=== PATIENT | male | born 1990 | race Caucasian/White ===

== ENCOUNTER 2018-05-07 05:32 | Inpatient (IN) | payer OTHER ==
[~2018-05-07] VITALS: Ht 172.7 cm; Wt 76.7 kg
--- NOTE | 2018-05-07 07:26 | NUR ---
MS RN NOTES PATIENT RECEIVED RESTING INSIDE ROOM. SLEEPING, EASILY AROUSABLE THROUGH VERBAL AND TACTILE STIMULI. BREATHING EVEN AND UNLABORED. DENIES ANY PAIN OR DISCOMFORT. PATIENT ADMITTED TO [facility] FLOOR. NABEEL HARDWICK NP MADE AWARE OF PATIENT ARRIVAL. AWAITING FOR DIET ORDERS. FAMILY AT BEDSIDE. PATIENT ORIENTED TO UNIT, STAFF, PLAN OF CARE AND VERBALIZED UNDERSTANDING. WILL CONTINUE TO MONITOR. BED LOCKED AND IN LOW POSITION. BILATERAL UPPER SIDE RAILS UP AND LOCKED. CALL LIGHT WITHIN EASY REACH
[2018-05-07 08:00] VITALS: BP 146/92
--- NOTE | 2018-05-07 08:00 | NUR ---
MS RN NOTES NINI CARRERA DNP MADE AWARE OF PATIENT ARRIVAL. MADE AWARE OF AWAITING ADMISSION ORDERS. WILL CONTINUE TO MONITOR
--- NOTE | 2018-05-07 08:30 | NUR ---
MS RN NOTES PATIENT'S MOTHER, SUMEET BYNUM, PRESENT AT UNIT AND LEFT CONTACT INFORMATION OF [phone]. REQUESTED IF SHE BE INFORMED OF ANY MEDICAL INFORMATION REGARDING THE PATIENT. EXPLAINED TO SUMEET BYNUM THAT PATIENT NEEDS TO BE INFORMED FIRST AND GIVE CONSENT PRIOR TO RELEASE OF MEDICAL INFORMATION PATIENT IS CAPABLE OF MAKING HIS OWN DECISIONS. SUMEET BYNUM VERBALIZED UNDERSTANDING AND SAID SHE WILL WAIT UNTIL PATIENT IS AWAKE PRIOR TO ASKING FOR CONSENT. WILL CONTINUE TO MONITOR
--- NOTE | 2018-05-07 10:21 | NUR ---
MS RN NOTES PATIENT AWAKE, ALERT AND ORIENTED X 4, VERBALLY RESPONSIVE AND RESPONDS TO VERBAL AND TACTILE STIMULI. BREATHING EVEN AND UNLABORED. DENIES ANY PAIN OR DISCOMFORT. PATIENT MADE AWARE OF MOTHER'S VISIT, SUMEET BYNUM. PATIENT VERBALIZED THAT ITS OK FOR STAFF TO GIVE MEDICAL INFORMATION TO MOTHER, SUMEET BYNUM. WILL CONTINUE TO MONITOPR
[2018-05-07] MEDS ORDERED: ACETAMINOPHEN 325 MG TABLET PO PRN (10:30)
[2018-05-07] MEDS ORDERED: HYDROCODONE/APAP 10/325MG 1 EA TABLET PO PRN (10:30)
[2018-05-07] MEDS ORDERED: ZOLPIDEM TARTRATE 5 MG TABLET PO PRN (10:30)
[2018-05-07] MEDS ORDERED: Z GUARD REMEDY 2 OZ OINT TP PRN (10:30)
[2018-05-07] MEDS ORDERED: ONDANSETRON HCL/PF 4 MG/2 ML VIAL IVP PRN (10:30)
[2018-05-07 11:19] LABS: CALCIUM, SERUM 8.2 mg/dL (8.5-10.1); CREATININE 0.9 mg/dL (0.6-1.3); POTASSIUM 4.1 mmol/L (3.5-5.1)
[2018-05-07] MEDS ORDERED: FEE PK DOSING 1 MIN EA MC ONE (11:47)
[2018-05-07] MEDS ORDERED: PIPERACILLIN /TAZOBACTAM 3.375 G in IV D5W 50 ML IV SCH (12:00)
[2018-05-07] MEDS: VANCOMYCIN 1 GM in IV D5W 250 ML IV SCH (13:05)
--- NOTE | 2018-05-07 13:36 | NUR ---
MS RN NOTES PATIENT SEEN AND EXAMINED BY NINI CARRERA DNP. EXAMINED PATIENT'S LEFT INDEX FINGER, WITH NEW ORDERS FOR WOUND CULTURE OF LEFT INDEX FINGER WOUND AND TO START BACTROBAN OINTMENT APPLICATION ON WOUND. ORDERS NOTED AND CARRIED OUT. SPECIMEN OBTAINED AND NOTIFIED LAB. PHARMACY MADE AWARE. AWAITING FOR BACTROBAN OINTMENT. WILL CONTINUE TO MONITOR
[2018-05-07 16:00] VITALS: BP 143/67
--- NOTE | 2018-05-07 18:46 | NUR ---
MS RN NOTES PATIENT RESTING INSIDE ROOM. AWAKE, ALERT AND ORIENTED X 4, VERBALLY RESPONSIVE AND RESPONDS TO VERBAL AND TACTILE STIMULI. BREATHING EVEN AND UNLABORED. NO ACUTE DISTRESS. DENIES ANY PAIN OR DISCOMFORT. CONTINUE TO NOTE WITH DRAINAGE ON LEFT INDEX FINGER, WOUND TX RENDERED AND PATIENT TOLERATED WOUND DRESSING CHANGE WELL. NO CHANGES IN LOC NOTED. IV INTACT AND PATENT. WILL ENDORSE TO INCOMING SHIFT FOR TED. BED LOCKED AND IN LOW POSITION. BILATERAL UPPER SIDE RAILS UP AND LOCKED. CALL LIGHT WITHIN EASY REACH
--- NOTE | 2018-05-07 19:37 | NUR ---
MS/RN OPENING NOTES RECEIVED PATIENT IN BED, RESTING COMFORTABLY IN BED, NO GRIMACE OR GUARDING OBSERVED, CAN OPEN EYES AND RESPOND. ON ROOM AIR, WITH LEFT HAND INDEX FINGER COVERED WITH DRESSING WITH CELLULITIS, REQUIRE ASSISTANCE, LEFT FORE ARM GAUGE 20 TO MONITOR, CALL LOGHTS WITHIN REACH, BED LOCKED WILL MONITOR.
[2018-05-07] MEDS: PIPERACILLIN /TAZOBACTAM 3.375 G in IV D5W 100 ML IV SCH (19:51)
[2018-05-07 19:58] VITALS: BP 135/69
[2018-05-07 20:00] VITALS: BP 135/69
[2018-05-07] MEDS: MUPIROCIN OINT 2% 22 GM TUBE TP SCH (20:31)
[2018-05-08] MEDS: VANCOMYCIN 1 GM in IV D5W 250 ML IV SCH ×2 (01:34→12:41)
[2018-05-08] MEDS: PIPERACILLIN /TAZOBACTAM 3.375 G in IV D5W 100 ML IV SCH ×3 (03:55→19:53)
[2018-05-08 03:59] VITALS: BP 135/69
--- NOTE | 2018-05-08 06:20 | NUR ---
312-2 MS/RN NOTED PATIENT IN BED, ABLE TO SLEEP DURING THE NIGHT, ON IV ANTIBIOTIC THERAPY, WILL CONTINUE TO MONITOR AND FOLLOW UP MD, CALL LIGHTS WITHIN REACH, BED LOCKED, WILL MONITOR.
--- NOTE | 2018-05-08 07:30 | NUR ---
MS RN OPENING NOTES PATIENT IN BED, A/O X3, ON IV ANTIBIOTIC THERAPY, IV SIDE INTACT AND PATENT. PT STATUS NPO AT THIS TIME. DENIES PAIN AT THIS TIME. CALL LIGHTS WITHIN REACH, BED LOCKED, WILL CONTINUE TO MONITOR
[2018-05-08 07:33] LABS: BASOPHILS % (AUTO) 0.3 % (0.0-2.0); EOSINOPHILS % (AUTO) 0.5 % (0.0-6.0); HEMATOCRIT 48 % (39-51); HEMOGLOBIN 15.9 g/dL (13.5-17.5); LYMPHOCYTES # (AUTO) 1.1 /CMM (0.8-4.8); LYMPHOCYTES % (AUTO) 10.8 % (20.0-44.0); MEAN CORPUSCULAR HGB CONC 33 g/dl (31.0-36.0); MEAN CORPUSCULAR VOLUME 81 fL (80-96); MONOCYTES # (AUTO) 0.6 /CMM (0.1-1.30); MONOCYTES % (AUTO) 5.8 % (2.0-12.0); NEUTROPHILS # (AUTO) 8.8 /CMM (1.8-8.9); NEUTROPHILS % (AUTO) 82.6 % (43.0-81.0); PLATELET COUNT (AUTO) 266 /CMM (150-450); RED BLOOD CELL COUNT(AUTO) 5.95 MIL/uL (4.5-6.0); WHITE BLOOD COUNT (AUTO) 10.6 K/uL (4.3-11.0)
[2018-05-08 08:00] VITALS: BP 105/68
[2018-05-08 08:03] VITALS: BP 105/68
[2018-05-08 08:10] LABS: CALCIUM, SERUM 8.7 mg/dL (8.5-10.1); MAGNESIUM 1.9 mg/dL (1.8-2.4); PHOSPHORUS 2.9 mg/dL (2.5-4.9); POTASSIUM 3.6 mmol/L (3.5-5.1)
[2018-05-08] MEDS: MUPIROCIN OINT 2% 22 GM TUBE TP SCH (08:19)
[2018-05-08] MEDS ORDERED: LIDOCAINE 1%-EPI 1:100,000 20 ML VIAL TP ONE (12:00)
--- NOTE | 2018-05-08 12:00 | NUR ---
BEDSIDE PROCEDURE (LEFT INDEX INCISION AND DRAINAGE) BY .
[2018-05-08 16:00] VITALS: BP 115/52
--- NOTE | 2018-05-08 19:20 | NUR ---
RN OPENING NOTES PT AWAKE, ALERT AND RESTING IN BED. NO COMPLAINTS OF PAIN, SOB OR DISTRESS AT THIS TIME. PT HAS A LEFT FOREARM #20 IV, INTACT AND PATENT. SAFETY PRECAUTIONS IN PLACE, BED IN LOWEST LOCKED POSITION, X2 SIDE RAILS UP AND CALL LIGHT WITHIN REACH. WILL CONTINUE TO MONITOR.
--- NOTE | 2018-05-08 19:31 | NUR ---
MS RN CLOSING NOTES PATIENT IN BED, A/O X3, ON IV ANTIBIOTIC THERAPY, IV SIDE INTACT AND PATENT. NO DISTRESS NOTED. PT TO D/C TOMORROW MORNING. CALL LIGHTS WITHIN REACH, SAFETY PRECAUTIONS IN PLACE.WILL ENCORES TO NEXT SHIFT
[2018-05-08 20:00] VITALS: BP 139/65
[2018-05-09] MEDS: VANCOMYCIN 1 GM in IV D5W 250 ML IV SCH ×3 (00:08→20:25)
[2018-05-09] MEDS: PIPERACILLIN /TAZOBACTAM 3.375 G in IV D5W 100 ML IV SCH ×3 (03:36→20:15)
[2018-05-09 06:35] LABS: CALCIUM, SERUM 8.9 mg/dL (8.5-10.1); CREATININE 1.1 mg/dL (0.6-1.3); POTASSIUM 3.9 mmol/L (3.5-5.1)
--- NOTE | 2018-05-09 06:57 | NUR ---
RN CLOSING NOTES PT ALERT AND RESTING IN BED. NO COMPLAINTS OF PAIN, SOB OR DISTRESS OVERNIGHT. PT HAS A LEFT FOREARM #20 IV, INTACT AND PATENT. SAFETY PRECAUTIONS IN PLACE, BED IN LOWEST LOCKED POSITION, X2 SIDE RAILS UP AND CALL LIGHT WITHIN REACH. WILL ENDORSE TO DAY SHIFT NURSE FOR CONTINUITY OF CARE.
--- NOTE | 2018-05-09 07:40 | NUR ---
MS RN RECEIVED ON BED, AWAKE,ALERT,ORIENTED X4,NOT IN ANY FORM OF DISTRESS NOTED, LEFT HAND W/ DRESSING DRY AND INTACT, DENIES PAIN AT THIS TIME,ALL NEEDS ATTENDED.
[2018-05-09 08:00] VITALS: BP 136/80
--- NOTE | 2018-05-09 08:50 | NUR ---
MS PERSAUD BREAKFAST SERVED,NO DUE MEDS AT THIS TIME.
--- NOTE | 2018-05-09 10:00 | NUR ---
MS HUN[employer]TE DELIVERY CLERK CAME TO SEE PT ,CHANGED DRESSING,DENIES PAIN AT THIS TIME.
[2018-05-09] MEDS ORDERED: DALB500V IV (11:39)
--- NOTE | 2018-05-09 12:00 | NUR ---
MS RN SEEN BY W/ ORDER TO GO HOME W/ HOME HEALTH IV ATB.
[2018-05-09] MEDS ORDERED: VANCOMYCIN 1 GM in IV D5W 250 ML IV SCH (13:30)
[2018-05-09 16:00] VITALS: BP 116/53
--- NOTE | 2018-05-09 17:00 | NUR ---
MS RN PATIENT READY TO BE DISCHARGE BUT NOW CRYING BECAUSE NO WHERE TO GO,HIS EMPLOYER JUST FIRED HIM AND NO PLACE TO GO, CALLED SUPERVISOR MACHINE SETTER TO ARRANGE DISCHARGE.
--- NOTE | 2018-05-09 18:58 | NUR ---
MS RN MOM AT BEDSIDE, CALLED [employer]ON INDOOR LANDSCAPER/GARDENER.
--- NOTE | 2018-05-09 19:30 | NUR ---
RECEIVED PATIENT IN BED WITH EYES CLOSED; EASILY AROUSABLE. AO X 3, NO ACUTE DISTRESS NOTED. NO SIGNS OF PAIN NOTED. IV PATENT, INTACT; FLUSHED. SAFETY REMINDERS GIVEN. ON LOW BED WITH BILATERAL UPPER SIDE RAILS UP. CALL RAJPUT WITHIN EASY REACH. WILL CONTINUE TO MONITOR.
[2018-05-09 20:00] VITALS: BP 135/81
[2018-05-10] MEDS: PIPERACILLIN /TAZOBACTAM 3.375 G in IV D5W 100 ML IV SCH (04:36)
[2018-05-10] MEDS: VANCOMYCIN 1 GM in IV D5W 250 ML IV SCH (04:37)
--- NOTE | 2018-05-10 06:00 | NUR ---
PATIENT ASLEEP, EASILY AROUSABLE. RESPIRATIONS EVEN. NO SIGNS OF PAIN NOTED. DUE MEDS GIVEN WITH NO ASE NOTED. NEEDS ATTENDED. KEPT CLEAN, DRY, AND COMFORTABLE. SAFETY PRECAUTIONS AND COMFORT MEASURES IN PLACE. WILL GIVE REPORT TO DAY SHIFT FOR CONTINUITY OF CARE.
[2018-05-10 07:06] LABS: CALCIUM, SERUM 9.2 mg/dL (8.5-10.1); CREATININE 1.1 mg/dL (0.6-1.3); POTASSIUM 3.8 mmol/L (3.5-5.1)
--- NOTE | 2018-05-10 07:40 | NUR ---
MS RN RECEIVED ON BED, AWAKE,ALERT,ORIENTED X4,NOT IN ANY FORM OF DISTRESS,RESPIRATIONS EVEN AND UNLABORED,NO SOB NOTED, LUNGS ARE CLEAR,ABDOMEN SOFT, POSITIVE BOWEL SOUNDS,DENIES PAIN AT THIS TIME,WILL MONITOR PATIENT'S CONDITION.
--- NOTE | 2018-05-10 08:30 | NUR ---
MS RN BREAKFAST SERVED,TOLERATED WELL.DENIES PAIN AT THIS TIME,PATIENT WANTS TO LEAVE BECAUSE HE WANTS TO GET HIS BELONGINGS IN HIS JOB RIGHT NOW, OTHERWISE,THE Y WILL THROWAWAY HIS BELONGINGS THERE,EXPLAINED THAT HE NEEDS TO STAY, MOM WILL PICK HIM UP,BUT STILL IN A HURRY TO GO HOME, EDUCATED REGARDING WOUND CARE,AND THE IMPORTANCE OF ATB IV THAT HOME HEALTH WILL GIVE, HE TOLD ME THAT THEY WILL COME TO HIS MOM'S HOUSE AND DO IT THERE.
--- NOTE | 2018-05-10 09:10 | NUR ---
MS RN DRESSING TO LEFT HAND DONE ,THEN PATIENT WENT HOME,CHARGE NURSE AWARE,CALLED AND NOTIFIED DIGITAL ADVISOR. PICTURE JUST TAKEN YESTERDAY MORNING WHEN DRESSING CHANGE W/ DATABASE ARCHITECT.
== END 2018-05-10 09:00 | disposition home health service (06) | DRG 364 ==
LOC: MED 06:35
PROVIDERS: ADMIT Nurse Practitioner Acute Care; ATTEND Nurse Practitioner Acute Care
PROC: 0J8K0ZZ Division of Left Hand Subcutaneous Tissue and Fascia, Open Approach (ICD-10-PCS; principal; 2018-05-08)
PROC: 0KBD0ZZ Excision of Left Hand Muscle, Open Approach (ICD-10-PCS; principal; 2018-05-08)
DX: L03.012 Cellulitis of left finger (principal); L02.512 Cutaneous abscess of left hand; L08.9 Local infection of the skin and subcutaneous tissue, unspecified; W26.0XXA Contact with knife, initial encounter; Y92.9 Unspecified place or not applicable; M65.9 Synovitis and tenosynovitis, unspecified; A49.01 Methicillin susceptible Staphylococcus aureus infection, unspecified site
CPT/HCPCS: 36415; 80048-TC; 80061-TC; 80202-TC; 83735-TC; 84100-TC; 85025-TC; 87070-TC; 87081-TC; A6402; A6403; A6407; G0378; J2543; J3370; J3490; J7040; J7050; J7060; Z7610